=== PATIENT | female | born 1965 | race Caucasian/White ===

== ENCOUNTER 2016-05-07 15:46 | Emergency (ER) | payer OTHER ==
[~2016-05-07] VITALS: Ht 162.6 cm; Wt 134.1 kg
[~2016-05-07 15:46] MED LIST: AMLO-39 PO; ARIP15TA2 PO; ATEN25TA PO; ATOR20TA65 PO; Aspirin PO; DIGO0.25 PO; DULO30CA PO; FERR-83 PO; GLBR5T PO; HYDR-3797 PO; LISI40TA PO; LORA10TA7 PO; METF500T4 PO; MONT10TA23 PO; OXCA300T2 PO; PROM25TA14 PO; QUET300T44 PO; QUET50TA55 PO; RANI150C4 PO; VERA120T84 PO
[2016-05-07 15:58] VITALS: BP 149/68; PULSE 84; RESP 20; O2SAT 92
--- NOTE | 2016-05-07 16:14 | ED.REPORT ---
HPI-Extremity Problem Lower Date of Service May 07, 2016 ED Provider: Hasmukh Willett MD 50 year old female with a history of atrial fibrillation, COPD, HTN, and diabetes presents to the ER via EMS complaining of left calf pain and swelling. Pain is rated at 6/10 in severity at rest, 10/10 with movement. Symptoms onset with pain two days ago, followed by swelling onset yesterday. Associated symptom of dry cough, and difficulty breathing. Patient denies chest pain. Nursing Notes Stated Complaint: PAINFUL, SWOLLEN LEFT CALF Chief Complaint: Extremity Trauma Nursing Notes Reviewed: Yes Allergies: Coded Allergies: Penicillins (Verified Allergy, Severe, 12/03/13) codeine (Verified Allergy, Severe, 12/03/13) ibuprofen (Verified Allergy, Severe, 12/03/13) cephalexin (Verified Allergy, Unknown, 03/10/14) Scheduled ([Aspirin]) 81 MG TAB.CHEW 81 MG PO DAILY Amlodipine (Norvasc) 5 Mg Tablet 5 MG PO DAILY Aripiprazole (Abilify) 15 Mg Tablet 15 MG PO AM Atenolol (Atenolol) 25 Mg Tablet 25 MG PO BID Atorvastatin Calcium (Atorvastatin Calcium) 20 Mg Tablet 0.5 MG PO AM Azithromycin (Zithromax (Z-Vinay)) 250 Mg Tablet 250 MG PO DIRECTED Take two tablets by mouth on day 1, then take one tablet daily on days 2 through 5. Digoxin (Digoxin) 0.25 Mg/5 Ml Solution 250 MG PO DAILY Duloxetine (Cymbalta) 30 Mg Capsule.dr 30 MG PO HS Ferrous Sulfate (Ferrous Sulfate) 325 Mg Tablet 325 MG PO NOON Glyburide (Glyburide) 5 Mg Tab 2 TAB PO BID Hydroxyzine Pamoate (HydrOXYzine Pamoate) 25 Mg Capsule 25 MG PO AM Hydroxyzine Pamoate (HydrOXYzine Pamoate) 25 Mg Capsule 50 MG PO HS Lisinopril (Lisinopril) 40 Mg Tablet 40 MG PO AM Loratadine (Loratadine) 10 Mg Tablet 10 MG PO NOON Metformin (Metformin) 500 Mg Tablet 2 TAB PO BID Montelukast (Montelukast) 10 Mg Tablet 10 MG PO AM Oxcarbazepine (Oxcarbazepine) 300 Mg Tablet 900 MG PO AM Oxcarbazepine (Oxcarbazepine) 300 Mg Tablet 1,200 MG PO HS Prednisone (PredniSONE) 20 Mg Tablet 60 MG PO DAILY Quetiapine Fumarate (Quetiapine Fumarate) 300 Mg Tablet 1 TAB PO HS Ranitidine (Ranitidine) 150 Mg Capsule 150 MG PO BID Verapamil ER (Verapamil ER) 120 Mg Tablet.er 120 MG PO BID Scheduled PRN Ibuprofen (Ibuprofen) 600 Mg Tablet 600 MG PO QID PRN PRN For Pain Promethazine (Promethazine) 25 Mg Tablet 25 MG PO Q6 PRN PRN For Nausea Quetiapine Fumarate (Quetiapine Fumarate) 50 Mg Tablet 1-3 TAB PO PRN PRN PRN . General Time Seen by MD: 16:12 Chief Complaint Leg injury left Hx Obtained From: Patient Arrived By: Ambulance Onset Occurred: Yesterday Symptom Duration: Since onset Location: : Leg left Quality: Painful Severity: Current: Pain level 6 out of 10 Severity: Maximum: Pain level 10 out of 10 Associated with: Denies: Chest pain Similar Sx Previous: No Past Medical History Past Medical History Notes: PCP: Dr. Allison Past Medical History 1. COPD 2. Diabetes, type 2, with gastroparesis 3. Bipolar, anxiety, depression and PTSD 4. Paroxysmal SVT with palpitations and syncope in the past - she has been on CCB and Digoxin. Had 29 hour Holter in 1998 showing 3 min and 12 min run of SVT and associated with lightheadedness but no palpitations. Pharmacologic myocardial stress test in 11/05/13 was normal. Presented today with Holter monitor on. 5. Chronic abdominal pain and Irritable bowel syndrome. 6. Chronic back pain due to osteoarthritis 7. Obesity. 8. HTN 9. HLD 10. GERD 11. Migraines 12. Cholecystitis s/p cholecystectomy 13. Alcohol abuse, in remission 14. 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 Respiratory: Reports: Non-productive cough, Shortness of breath Cardiovascular: Denies: Chest pain Physical Exam Initial Vital Signs Vital Signs (First) Date Time Temp Pulse Resp B/P Pulse Ox O2 Delivery O2 Flow Rate FiO2 05/07/16 15:58 36.9 84 20 149/68 92 Room Air Initial VS: Reviewed Head / Eyes: Atraumatic, Normocephalic Neck: Supple, Non-tender, Full range of motion Abdomen / GI: Soft, Non-tender, No guarding, No rebound, No distention Upper Extremities: Vascular intact, Neuro intact, No swelling, No tenderness Skin: Warm, Dry, No cyanosis Neurologic: Alert, Oriented, Nonfocal Lower Extremity / Pelvis / MS: Full range of motion, Neurologic intact, Vascular intact Left Leg / Calf: Positive: Swelling present... (Moderate), Tenderness present... Ankle / Foot: Atraumatic, Inspection NL, Full range of motion, No swelling, No erythema, Non-tender, No deformity, Neurologic intact, Vascular intact, No edema General/Constitutional: Awake, Alert, Well developed, Well nourished Appearance / Presentation: Positive: Obese, morbidly Respiratory / Chest: No rales, No rhonchi Wheezing / Retractions: Positive: Wheezing moderate (bilateral) Cardiovascular: Heart rate NL, Regular rhythm, Heart sounds NL, Peripheral circulation NL Interpretation & Diagnostics Lab Results Interpretation Result Diagram: 05/07/16 1637 05/07/16 1637 Test 05/07/16 16:37 05/07/16 20:25 White Blood Count 10.2th/mm3 (3.8-10.1) Red Blood Count 5.26mil/mm3 (3.90-5.20) Hemoglobin 12.3g/dL (12.0-15.6) Hematocrit 37.0% (35.0-46.0) Mean Corpuscular Volume 70.3fL (81-100) Mean Corpuscular Hemoglobin 23.4pg (27.0-35.0) Mean Corpuscular Hemoglobin Concent 33.2% (32.0-37.0) Red Cell Distribution Width 14.5% (12.3-15.4) Platelet Count 242bil/L (150-400) Neutrophils (%) (Auto) 64.6% (40-74) Lymphocytes (%) (Auto) 28.5% (14-46) Monocytes (%) (Auto) 5.3% (4-12) Eosinophils (%) (Auto) 1.1% (0-5) Basophils (%) (Auto) 0.3% (0-3) D-Dimer 0.8mg/L (<0.50) Sodium Level 131mEq/L (134-144) Potassium Level 4.4mEq/L (3.5-5.2) Chloride Level 93mEq/L (97-108) Carbon Dioxide Level 25mmol/L (18-29) Blood Urea Nitrogen 12mg/dL (6-24) Creatinine 0.39mg/dL (0.57-1.00) Estimat Glomerular Filtration Rate 248mL/min (>59) Glucose Level 97mg/dL (60-99) Calcium Level 8.7mg/dL (8.5-10.1) Total Bilirubin 0.2mg/dL (0.0-1.2) Aspartate Amino Transf (AST/SGOT) 19U/L (0-50) Alanine Aminotransferase (ALT/SGPT) 10U/L (0-32) Alkaline Phosphatase 120U/L (25-150) Troponin T < 0.010ug/L (0.0-0.011) Total Protein 7.2g/dL (6.4-8.4) Albumin 4.2g/dL (3.4-5.0) Hold Dykes Top Tube Received (Received) Hold Urine Received (Received) ECG Interpretation ECG Interpretation: Sinus rhythm, rate 88 LVH T wave inversions isolated in v1 No ST elevation No prior ECG available for comparison Time: 17:05 Interpreted by: ED physician X-Ray Chest Interpretation Chest Xray Interpretation: IMPRESSION: 1. No acute cardiopulmonary abnormality 2. Left upper lobe pulmonary nodule, unchanged. Dictated by: Jair Ott M.D. on 05/07/2016 at 16:52 Approved by: Jair Ott M.D. on 05/07/2016 at 16:54 View: Portable, 1 view Interpretation / Wet Read by: Interpret - Radiologist US Soft Tissue/Musculoskeletal PROCEDURE: US VEINOUS LEG DUPLEX UNILATERAL, LEFT INDICATIONS: LLE swelling TECHNIQUE: Real-time imaging, as well as color and pulse Doppler interrogation, were performed of the lower extremity deep veins from the inguinal ligament to the popliteal fossa. COMPARISON: None. FINDINGS: The deep veins are normally compressible, and free of intraluminal thrombus. Color and pulse Doppler demonstrate normal phasic intraluminal flow. There is normal augmentation response to distal compression maneuver. IMPRESSION: No evidence of deep venous thrombosis Dictated by: Gil Donovan M.D. on 05/07/2016 at 17:40 Approved by: Gil Donovan M.D. on 05/07/2016 at 17:41 CT Chest Interpretation IMPRESSION: No gross or central pulmonary embolism however suboptimal opacification of the segmental pulmonary arteries. Scattered groundglass attenuation throughout the lungs bilaterally probably mild atelectasis although early pulmonary edema can have this appearance. Please correlate clinically. Evaluation limited by respiratory motion artifact. Dictated by: Gil Donovan M.D. on 05/07/2016 at 19:57 Approved by: Gil Donovan M.D. on 05/07/2016 at 20:05 Study type: CT pulm angiogram Interpretation / Wet Read by: Interpret - Radiologist Re-Eval/Medical Decision Med Decision/Clinical Course 50-year-old female started with Dr. moreau, COPD, diabetes presenting with left calf swelling and with cough. Vital signs stable. Left lower extremity ultrasound shows no evidence of DVT. D-dimer was mildly elevated. CT angio chest no PE. There is questionable developing pneumonia. Patient will be treated with antibiotics as below and steroids. Recommend follow-up primary doctor 1-2 days. Return precautions given. Source of Hx: Old records Re-Evaluation/Progress : Time of Eval: 20:36 Re-Evaluation/Progress Note: Discussed lab and radiology results and plan to discharge. Patient is amenable to the plan. Return precautions given. All other questions addressed. Counseled Regarding: Diagnosis, Lab results, Need for follow-up, When/why to return to ED Discharge & Departure Impression: Primary Impression: Pneumonia Disposition: Home Discharge Condition All VS Reviewed: Yes Condition: Stable Additional Instructions: Your workup today was reassuring. I do not believe that there is any dangerous cause for your symptoms at this time. Your CT and X-rays do not show any signs of blood clot. Use the prescribed steroids as directed for your symptoms. I have also prescribed you a course of azithromycin. Please take this as directed. It is important that you take the entire course of medication, even if you are feeling better. Call your primary care provider to arrange a follow-up appointment in 1-2 days. Return to the ER if you develop worsening symptoms, fever, chills, chest pain, shortness of breath, or any other concerning symptoms. Referrals: Libby Allison MD (PCP) Kathleen Attestation Portions of this note were transcribed by Michael Morales. I, Dr. Willett, personally performed the history, physical exam and medical decision-making; I reviewed and confirmed the accuracy of the information in the transcribed note. Signed by: Kathleen Rodgers, 05/07/2016 - 20:36 copies to: Libby Allison MD, Ben M MD May 07, 2016 16:14 MICHAEL MORALES May 07, 2016 16:24
[2016-05-07] MEDS ORDERED: Albuterol 2.5 mg/3 mL Inhalation Solution NEB ONE (16:20)
[2016-05-07 16:46] LABS: BASOPHILS % (AUTO) 0.3 % (0-3); EOSINOPHILS % (AUTO) 1.1 % (0-5); MONOCYTES % (AUTO) 5.3 % (4-12); Mean Corpuscular Hemoglobin 23.4 pg (27.0-35.0); Mean Corpuscular Volume 70.3 fL (81-100); NEUTROPHILS % (AUTO) 64.6 % (40-74); Platelet Count 242 bil/L (150-400)
--- NOTE | 2016-05-07 16:56 | DRSVH ---
PROCEDURE: X-RAY CHEST ONE VIEW, PORTABLE ([id number]) INDICATIONS: cough TECHNIQUE: One view of the chest was acquired. COMPARISON: 01/10/2015, 08/06/2011 FINDINGS: Surgical changes and devices: None. Lungs and pleura: No pleural effusions or pneumothorax. Lungs are clear. A 1 cm nodular density jus t below the left second anterior rib is unchanged. Mediastinum: Mediastinal contours appear normal. Heart size is normal. Bones and chest wall: No suspicious bony lesions. Overlying soft tissues appear unremarkable. IMPRESSION: 1. No acute cardiopulmonary abnormality 2. Left upper lobe pulmonary nodule, unchanged. Dictated by: Jair Ott M.D. on 05/07/2016 at 16:52 Approved by: Jair Ott M.D. on 05/07/2016 at 16:54
[2016-05-07 17:19] VITALS: PULSE 87; RESP 20; O2SAT 93
[2016-05-07 17:34] LABS: TROPONIN T < 0.010 ug/L (0.0-0.011)
--- NOTE | 2016-05-07 17:43 | DRSVH ---
PROCEDURE: US VEINOUS LEG DUPLEX UNILATERAL, LEFT INDICATIONS: LLE swelling TECHNIQUE: Real-time imaging, as well as color and pulse Doppler interrogation, were performed of the lower extr emity deep veins from the inguinal ligament to the popliteal fossa. COMPARISON: None. FINDINGS: The deep veins are normally compressible, and free of intraluminal thrombus. Color and pu lse Doppler demonstrate normal phasic intraluminal flow. There is normal augmentation response to di stal compression maneuver. IMPRESSION: No evidence of deep venous thrombosis Dictated by: Gil Donovan M.D. on 05/07/2016 at 17:40 Approved by: Gil Donovan M.D. on 05/07/2016 at 17:41
[2016-05-07 19:18] VITALS: BP 181/98; PULSE 81; O2SAT 94
--- NOTE | 2016-05-07 20:07 | DRSVH ---
PROCEDURE: CT ANGIO CHEST PULMONARY EMBOLISM ([id number]) INDICATIONS: cp elevated ddimer TECHNIQUE: After the administration of intravenous contrast, 2 mm thick sections acquired from the pulmonary api eulogio to the posterior costophrenic angles. 3-dimensional maximum intensity projection (MIP) coronal a nd sagittal reformats were then acquired through the thorax. For radiation dose reduction, the follo wing was used: automated exposure control, adjustment of mA and/or kV according to patient size. COMPARISON: [facility], CT, CHEST W/O CONTRAST, 06/07/2006, 12:16. [facility], CT, C-SPINE W/O CONTRAST, 12/03/2013, 9:44. FINDINGS: Image quality: Suboptimal due to heterogeneous opacification of the segmental pulmonary arteries Pulmonary arteries: Pulmonary arteries are normal in size, and demonstrate no intraluminal filling d efects to suggest central pulmonary embolism. Lungs and pleura: Scattered bilateral groundglass opacities. No pleural effusions or pneumothorax. C entral and peripheral airways are patent. There is a pleural-based left upper lobe nodule measuring 1.2 cm image 12 series 6. This is unchanged since 06/07/06. Mediastinum: Heart size is mildly enlarged, without pericardial effusion. No mediastinal or hilar a denopathy. Thoracic aorta is normal in caliber and enhancement. Esophagus is normal in caliber, wit hout hiatal hernia. Bones and chest wall: No suspicious bony lesions. Ribs and thoracic spine appear intact throughout. No axillary or supraclavicular adenopathy. Abdomen: Nodular contour of the liver suggestive of cirrhosis. IMPRESSION: No gross or central pulmonary embolism however suboptimal opacification of the segmental pulmonary ar teries. Scattered groundglass attenuation throughout the lungs bilaterally probably mild atelectasis although early pulmonary edema can have this appearance. Please correlate clinically. Evaluation limited by r espiratory motion artifact. Dictated by: Gil Donovan M.D. on 05/07/2016 at 19:57 Approved by: Gil Donovan M.D. on 05/07/2016 at 20:05
[2016-05-07] MEDS ORDERED: predniSONE 20 mg Tablet PO ONE (20:35)
[2016-05-07] MEDS ORDERED: AZIT250T4 PO (20:36)
[2016-05-07] MEDS ORDERED: PRE20 PO (20:36)
[2016-05-07] MEDS ORDERED: IBUP-1827 PO (20:54)
[2016-05-07 21:00] VITALS: BP 159/89; PULSE 79; O2SAT 94
== END 2016-05-07 21:01 | disposition home or self-care (01) ==
LOC: SED 15:46 → EDBD 15:46 → SED 21:01
DX: J18.9 Pneumonia, unspecified organism (principal); M79.89 Other specified soft tissue disorders; I11.9 Hypertensive heart disease without heart failure; E11.59 Type 2 diabetes mellitus with other circulatory complications; I48.91 Unspecified atrial fibrillation; J44.9 Chronic obstructive pulmonary disease, unspecified; K21.9 Gastro-esophageal reflux disease without esophagitis; F31.9 Bipolar disorder, unspecified; E11.43 Type 2 diabetes mellitus with diabetic autonomic (poly)neuropathy; E78.5 Hyperlipidemia, unspecified; Z79.82 Long term (current) use of aspirin; Z79.84 Long term (current) use of oral hypoglycemic drugs; Z88.0 Allergy status to penicillin; Z88.1 Allergy status to other antibiotic agents; Z88.5 Allergy status to narcotic agent; Z88.8 Allergy status to other drugs, medicaments and biological substances
CPT/HCPCS: 36415; 71010; 71275; 80053; 82948; 84484; 85025; 85379; 93005; 93970; 96374; 99285; J2270; J7613; Q9967